=== PATIENT | female | born 1945 ===

== ENCOUNTER 2016-08-07 07:42 | Day surgery (SDC) | payer MEDICARE, OTHER ==
[2016-08-07 09:08] VITALS: BMI 16.0
[2016-08-07 09:28] VITALS: TEMP 97.8
[2016-08-07] MEDS ORDERED: Propofol 10 mg/ml Inj (20 ML) ONE (10:41)
[2016-08-07] MEDS ORDERED: Lactated Ringer's 500 ML IV ONE ×2 (10:42)
[2016-08-07] MEDS ORDERED: Lidocaine Hydrochloride 5 ML INJ ONE (10:42)
[2016-08-07 12:54] VITALS: O2SAT 100
[2016-08-07 12:59] VITALS: BP 118/65; PULSE 63; RESP 18
== END 2016-08-07 12:20 | disposition home or self-care (01) ==
LOC: C.ENDO 07:42
PROVIDERS: ATTEND Internal Medicine Gastroenterology
DX: Z09 Encounter for follow-up examination after completed treatment for conditions other than malignant neoplasm (principal); Z90.49 Acquired absence of other specified parts of digestive tract; Z85.01 Personal history of malignant neoplasm of esophagus
CPT/HCPCS: 43235; 82948; J2704; J7120

== ENCOUNTER 2018-06-30 07:27 | Outpatient (CLI) | payer MEDICARE, OTHER | END 2018-06-30 07:28 | disposition home or self-care (01) | LOC: C.USIC 07:28 | DX: R10.2 Pelvic and perineal pain (principal) ==

== ENCOUNTER 2018-08-09 13:30 | Emergency (ER) | payer MEDICARE, OTHER ==
[2018-08-09 13:31] VITALS: BMI 16.0
[2018-08-09 13:44] VITALS: O2SAT 99
--- NOTE | 2018-08-09 14:50 | CT ---
Date of service: 08/09/2018 PROCEDURE: CT HEAD WITHOUT CONTRAST. HISTORY: fall/trip R facial contusion, ? [facility] COMPARISON: None available. TECHNIQUE: Axial computed tomography images were obtained through the head/brain without intravenous contrast. Radiation dose: Total exam DLP = 849.59 mGy-cm. This CT exam was performed using one or more of the following dose reduction techniques: Automated exposure control, adjustment of the mA and/or kV according to patient size, and/or use of iterative reconstruction technique. FINDINGS: HEMORRHAGE: No acute parenchymal, subarachnoid or extra-axial hemorrhage.. BRAIN: No evidence of large acute infarct.. No obvious parenchymal nor extra-axial masses or collections seen on this noncontrast study. Mild age-appropriate volume loss. Mild vascular calcifications both carotid siphons. VENTRICLES: No obstructive hydrocephalus. CALVARIUM: There are no acute calvarial fracture seen. PARANASAL SINUSES: Unremarkable as visualized. No significant inflammatory changes. MASTOID AIR CELLS: Unremarkable as visualized. No inflammatory changes. OTHER FINDINGS: None. IMPRESSION: No acute intracranial hemorrhage. No evidence of large acute infarct. Mild age-appropriate volume loss.
--- NOTE | 2018-08-09 14:57 | C.PDOC ---
History Of Present Illness 73 year old female presents to ED with complaint of right lip pain and swelling after she tripped and fell [employer]. Patient has no prodromal symptoms. She denies headache, numbness, and weakness. - HPI Time Seen by Provider: 08/09/18 13:49 Chief Complaint (Nursing): Trauma History Per: Patient History/Exam Limitations: no limitations Injury Occurred (Timing): Just Before Arrival Location Of Injury: Right: Face (right lip) - Fall Fall:Prior To Injury: Tripped Past Medical History Reviewed: Historical Data, Nursing Documentation, Vital Signs Vital Signs: Last Vital Signs Temp 98.3 F 08/09/18 13:41 Pulse 86 08/09/18 13:41 Resp 18 08/09/18 13:41 BP 128/80 08/09/18 13:41 Pulse Ox 99 08/09/18 13:41 - Medical History PMH: Anemia, Anxiety, Bronchitis, Diabetes, Gastritis, HTN, Hypothyroidism, Kidney Stones, Chronic Kidney Disease Surgical History: Endoscopy - [facility] Procedures COLONOSCOPY (11/09/14) EXCISION OF MESENTERIC LYMPHATIC, OPEN APPROACH, DIAGNOSTIC (09/27/15) RESECTION OF LOWER ESOPHAGUS, OPEN APPROACH (09/27/15) RESECTION OF STOMACH, OPEN APPROACH (09/27/15) ROBOTIC ASSISTED PROCEDURE OF TRUNK REGION, OPEN APPROACH (09/27/15) Family History: States: Unknown Family Hx - Social History Hx Tobacco Use: No Hx Alcohol Use: No Hx Substance Use: No - Immunization History Hx Tetanus Toxoid Vaccination: No Hx Influenza Vaccination: No Hx Pneumococcal Vaccination: No Review Of Systems Constitutional: Negative for: Fever, Chills, Weakness ENT: Positive for: Other (right lip pain) Cardiovascular: Negative for: Chest Pain Neurological: Negative for: Weakness, Numbness, Headache, Dizziness Physical Exam - Physical Exam Appears: Well, Non-toxic, No Acute Distress Skin: Normal Color, Warm, Dry Head: Normacephalic, Abrasion (lateral right eye) Oral Mucosa: Moist Lips: Contusion (right lateral lip) Throat: Normal, No Erythema, No Exudate Neck: Normal ROM, Supple Chest: Symmetrical, No Deformity Respiratory: No Accessory Muscle Use Extremity: Bilateral: Atraumatic, Normal Color And Temperature, Normal ROM Neurological/Psych: Oriented x3, Normal Speech, Normal Cognition, Normal Cranial Nerves, Normal Motor, Normal Sensation ED Course And Treatment O2 Sat by Pulse Oximetry: 99 (in RA) - Radiology Nexus Criteria: Midline Tenderness/Distracting Injury - CT Scan/US head CT Other Rad Studies (CT/US): Interpreted By Me, Radiology Report Reviewed (neg) CT/US Interpretation: IMPRESSION: No acute intracranial hemorrhage. No evidence of large acute infarct. Mild age-appropriate volume loss. Progress Note: Head CT w/o contrast ordered for patient. Re-evaluation. Patient feels better. Discussed results and plan with patient who expresses understanding. All questions answered and there is agreement with the plan to discharge home with instructions. Patient stable for discharge. Return if symptoms persist or worsen. Reevaluation Time: 14:56 Reassessment Condition: Improved Medical Decision Making Medical Decision Making: facial contusion, R lip abrasion normal head CT Disposition Doctor Will See Patient In The: Office Counseled Patient/Family Regarding: Studies Performed, Diagnosis - Disposition Referrals: Arthur Whittaker MD [Medical Doctor] - Disposition: HOME/ ROUTINE Disposition Time: 14:57 Condition: GOOD Additional Instructions: ice packs 1/2 hour per hour, nothing hot motrin/advil 400 mg every 6 hours as needed head CT negative Instructions: Contusion (DC), Minor Head Injury Forms: [facility] (Bengali) - Clinical Impression Clinical Impression: Facial contusion - Scribe Statement The provider has reviewed the documentation as recorded by the Scribe (Kim Vázquez) All medical record entries made by the Scribe were at my direction and personally dictated by me. I have reviewed the chart and agree that the record accurately reflects my personal performance of the history, physical exam, medical decision making, and the department course for this patient. I have also personally directed, reviewed, and agree with the discharge instructions and disposition.
[2018-08-09 15:01] VITALS: BP 111/71; PULSE 78; RESP 20; TEMP 98.6
[2018-08-09] MEDS ORDERED: Bacitracin 500 Units/gm Oint Foilpak UD ONE (15:10)
== END 2018-08-09 15:22 | disposition home or self-care (01) ==
LOC: C.ER 13:30
DX: S00.531A Contusion of lip, initial encounter (principal); W01.0XXA Fall on same level from slipping, tripping and stumbling without subsequent striking against object, initial encounter